=== PATIENT | female | born 1980 | race Two or more races ===

== ENCOUNTER 2022-11-18 17:57 | Inpatient (IN) | payer BC ==
[~2022-11-18] VITALS: Ht 154.9 cm; Wt 91.0 kg
[2022-11-18] MEDS ORDERED: SODIUM CHLORIDE 0.9% 1,000 ML IV ONE (19:15)
[2022-11-18] MEDS ORDERED: ONDANSETRON HCL 4 MG/2 ML VIAL IV ONE (19:15)
[2022-11-18 19:24] LABS: Hematocrit 52.1 % (36.0-46.0); Hemoglobin 17.5 g/dL (12.2-16.2); Mean Corpuscular Hgb Conc. 33.6 g/dL (32.0-36.0)
[2022-11-18 19:26] LABS: Mean Corpuscular Hemoglobin 28.8 pg (28.0-32.0); Mean Corpuscular Volume 85.8 fL (80.0-100.0); Red Blood Cells 6.07 10^6/uL (4.0-5.20); Red Cell Distribution Width 14.4 % (11.8-14.3); White Blood Cell 25.8 10^3/uL (4.4-10.8)
[2022-11-18 19:30] LABS: Basophils % (manual) 0 (0.0-2.0); Blast Cells 0; Eosinophils % (manual) 0 (0-7); Metamyelocytes % 0; Myelocytes % 0; Promyelocytes % 0; Reactive Lymphocytes 0
[2022-11-18 20:01] LABS: Anisocytosis Slight; Band Neutrophils % (manual) 4; Lymphocytes % (manual) 13 (10.0-50.0); Monocytes % (manual) 11 (0-12); Platelet Estimate Adequate
[2022-11-18 20:02] LABS: Albumin 4.5 g/dL (3.4-5.0); Anion Gap 13 (5-15); Blood Urea Nitrogen 22 mg/dL (7-18); Calcium 12.7 mg/dL (8.5-10.1); Carbon Dioxide 22 mmol/L (21-32); Chloride 102 mmol/L (98-107); Glucose 187 mg/dL (74-106); Lipase 977 U/L (73-393); Potassium 3.5 mmol/L (3.5-5.1); Sodium 137 mmol/L (136-145)
[2022-11-18 20:05] LABS: Alanine Aminotransferase 182 U/L (13-56); Alkaline Phosphatase 99 U/L (45-117); Aspartate Aminotransferase 125 U/L (15-37); BUN/Creatinine Ratio 12.4 (10.0-20.0); Bilirubin, Total 1.2 mg/dL (0.2-1.0); GFR African American 40 mL/min; GFR Non-African American 33 mL/min; Total Protein 8.8 g/dL (6.4-8.2)
[2022-11-18] MEDS ORDERED: PIPERACILLIN-TAZOB 3.375GM 100 ML IV ONE (21:45)
[2022-11-19] MEDS ORDERED: NITROGLYCERIN 0.4 MG SL TAB SL PRN (00:45)
[2022-11-19] MEDS ORDERED: ONDANSETRON HCL 4 MG/2 ML VIAL IV PRN (00:45)
[2022-11-19] MEDS ORDERED: HYDROcodone-ACET 5/325MG TAB PO PRN (00:45)
[2022-11-19] MEDS ORDERED: MORPHINE SULFATE INJ 2 MG/ml SYRG IV PRN ×2 (00:45)
[2022-11-19] MEDS ORDERED: SODIUM CHLORIDE 0.9% 1,000 ML IV SCH (00:45)
[2022-11-19] MEDS ORDERED: IBUPROFEN 600 MG TAB PO PRN (00:45)
[2022-11-19] MEDS ORDERED: DOCUSATE SOD 100 MG CAP PO PRN (00:45)
[2022-11-19 06:09] LABS: Basophils # (auto) 0 10 ^3/uL (0-0.2); Basophils % (auto) 0.2 % (0.0-2.0); Eosinophils # (auto) 0 10 ^3/uL (0-0.8); Eosinophils % (auto) 0.3 % (0.0-7.0); Hematocrit 45.4 % (36.0-46.0); Hemoglobin 15.5 g/dL (12.2-16.2); Lymphocytes # (auto) 2.6 10 ^3/uL (0.4-5.4); Lymphocytes % (auto) 21.8 % (10.0-50.0); Mean Corpuscular Hemoglobin 28.8 pg (28.0-32.0); Mean Corpuscular Volume 84.7 fL (80.0-100.0); Monocytes # (auto) 0.7 10 ^3/uL (0-1.3); Monocytes % (auto) 6.1 % (0.0-12.0); Neutrophils # (auto) 8.6 10 ^3/uL (1.6-8.6); Neutrophils % (auto) 71.6 % (37.0-80.0); Nucleated Red Blood Cells % 0.3 %; Red Blood Cells 5.36 10^6/uL (4.0-5.20); Red Cell Distribution Width 14.9 % (11.8-14.3)
[2022-11-19] MEDS: metroNIDAZOLE 500MG/100ML 100 ML IV SCH ×3 (06:12→23:30)
[2022-11-19 06:31] LABS: Albumin 3.9 g/dL (3.4-5.0); BUN/Creatinine Ratio 18.1 (10.0-20.0); Bilirubin, Total 0.9 mg/dL (0.2-1.0); Calcium 11.4 mg/dL (8.5-10.1)
[2022-11-19 07:53] VITALS: RESP 15; O2SAT 96
[2022-11-19] MEDS: cefTRIAXone 1GM/50ML D5W 50 ML IV SCH (09:15)
[2022-11-19 09:21] LABS: COVID19 ANTIGEN SOFIA FIA NEGATIVE (NEGATIVE); Rapid Influenza A Negative (Negative); Rapid Influenza B Negative (Negative)
[2022-11-19] MEDS ORDERED: POTASSIUM CHL 20 Meq TABLET PO ONE (11:45)
[2022-11-19] MEDS: SODIUM CHLORIDE 0.9% 1,000 ML IV SCH ×2 (12:10→21:46)
[2022-11-19 16:29] VITALS: BP 134/83; PULSE 61; RESP 16; TEMP 98.3; O2SAT 99
[2022-11-19 20:00] VITALS: BP 130/91; PULSE 75; RESP 20; TEMP 98.1
[2022-11-19 22:00] VITALS: BP 130/91; PULSE 75; RESP 20; TEMP 98.1; O2SAT 97
[2022-11-20] MEDS: metroNIDAZOLE 500MG/100ML 100 ML IV SCH ×4 (01:53→21:34)
[2022-11-20] MEDS: SODIUM CHLORIDE 0.9% 1,000 ML IV SCH ×4 (01:53→19:45)
[2022-11-20 05:00] VITALS: BP 137/91; PULSE 71; RESP 18; TEMP 98; O2SAT 96
[2022-11-20 06:40] LABS: Basophils # (auto) 0 10 ^3/uL (0-0.2); Basophils % (auto) 0.3 % (0.0-2.0); Eosinophils # (auto) 0.4 10 ^3/uL (0-0.8); Eosinophils % (auto) 4.5 % (0.0-7.0); Hematocrit 40.8 % (36.0-46.0); Hemoglobin 13.7 g/dL (12.2-16.2); Lymphocytes # (auto) 3.2 10 ^3/uL (0.4-5.4); Lymphocytes % (auto) 34.3 % (10.0-50.0); Mean Corpuscular Hemoglobin 28.9 pg (28.0-32.0); Mean Corpuscular Hgb Conc. 33.7 g/dL (32.0-36.0); Mean Corpuscular Volume 85.8 fL (80.0-100.0); Monocytes # (auto) 0.8 10 ^3/uL (0-1.3); Monocytes % (auto) 8.6 % (0.0-12.0); Neutrophils # (auto) 4.9 10 ^3/uL (1.6-8.6); Neutrophils % (auto) 52.3 % (37.0-80.0); Nucleated Red Blood Cells % 0.1 %; Red Blood Cells 4.75 10^6/uL (4.0-5.20); Red Cell Distribution Width 14.7 % (11.8-14.3); White Blood Cell 9.4 10^3/uL (4.4-10.8)
[2022-11-20 06:55] LABS: Albumin 3.4 g/dL (3.4-5.0); Calcium 10.7 mg/dL (8.5-10.1); Potassium 3.1 mmol/L (3.5-5.1)
[2022-11-20 07:00] LABS: BUN/Creatinine Ratio 19.6 (10.0-20.0); Bilirubin, Total 0.7 mg/dL (0.2-1.0); Total Protein 6.7 g/dL (6.4-8.2)
[2022-11-20] MEDS ORDERED: POTASSIUM CHL 20 Meq TABLET PO ONE (07:30)
[2022-11-20 07:57] VITALS: RESP 20
[2022-11-20 09:00] VITALS: BP 119/84; PULSE 72; RESP 18; TEMP 98.2; O2SAT 98
[2022-11-20] MEDS: cefTRIAXone 1GM/50ML D5W 50 ML IV SCH (09:15)
[2022-11-20] MEDS: FAMOTIDINE (10MG/ML) 2ML VL IV SCH ×2 (09:15→21:35)
[2022-11-20] MEDS: POTASSIUM CHL 20 Meq TABLET PO SCH ×2 (09:16→21:35)
[2022-11-20 13:00] VITALS: BP 120/94; PULSE 68; RESP 18; TEMP 97.9; O2SAT 98
[2022-11-20 13:56] LABS: Hepatitis A Ab IgM Negative; Hepatitis B Core IgM Negative; Hepatitis B Surface Antigen Negative (Negative); Hepatitis C Antibody Negative (Negative)
[2022-11-20 17:00] VITALS: BP 151/91; PULSE 69; RESP 19; TEMP 97.9; O2SAT 92
[2022-11-20 22:00] VITALS: BP 128/79; PULSE 79; RESP 16; TEMP 98.2; O2SAT 99
[2022-11-21] MEDS: SODIUM CHLORIDE 0.9% 1,000 ML IV SCH ×2 (00:33→11:45)
[2022-11-21 05:00] VITALS: BP_SYST 138; BP_SYST 149; BP_DIAS 82; BP_DIAS 97; PULSE 75; PULSE 83; RESP 14; RESP 16; TEMP 98.2; TEMP 98.3; O2SAT 97; O2SAT 99
[2022-11-21] MEDS: metroNIDAZOLE 500MG/100ML 100 ML IV SCH (05:44)
[2022-11-21 06:30] LABS: Basophils # (auto) 0.1 10 ^3/uL (0-0.2); Basophils % (auto) 0.7 % (0.0-2.0); Eosinophils # (auto) 0.5 10 ^3/uL (0-0.8); Eosinophils % (auto) 5.2 % (0.0-7.0); Hemoglobin 13.8 g/dL (12.2-16.2); Lymphocytes # (auto) 3.8 10 ^3/uL (0.4-5.4); Lymphocytes % (auto) 41.4 % (10.0-50.0); Mean Corpuscular Hemoglobin 29.1 pg (28.0-32.0); Mean Corpuscular Hgb Conc. 33.7 g/dL (32.0-36.0); Mean Corpuscular Volume 86.4 fL (80.0-100.0); Monocytes # (auto) 0.7 10 ^3/uL (0-1.3); Monocytes % (auto) 8.3 % (0.0-12.0); Neutrophils % (auto) 44.4 % (37.0-80.0); Nucleated Red Blood Cells % 0.1 %; Red Blood Cells 4.74 10^6/uL (4.0-5.20); Red Cell Distribution Width 14.6 % (11.8-14.3); White Blood Cell 9.1 10^3/uL (4.4-10.8)
[2022-11-21 09:00] VITALS: BP 130/100; PULSE 78; RESP 20; TEMP 97.5; O2SAT 97
[2022-11-21 09:03] LABS: Potassium 3.8 mmol/L (3.5-5.1)
[2022-11-21 09:19] LABS: Albumin 3.4 g/dL (3.4-5.0); BUN/Creatinine Ratio 12.8 (10.0-20.0); Bilirubin, Total 0.5 mg/dL (0.2-1.0); Calcium 10.1 mg/dL (8.7-10.4); Total Protein 6.3 g/dL (6.4-8.2)
[2022-11-21] MEDS: FAMOTIDINE (10MG/ML) 2ML VL IV SCH (10:00)
[2022-11-21] MEDS: cefTRIAXone 1GM/50ML D5W 50 ML IV SCH (10:49)
[2022-11-21] MEDS: POTASSIUM CHL 20 Meq TABLET PO SCH (10:49)
[2022-11-21] MEDS ORDERED: PANT40TA2 PO (11:20)
[2022-11-21 14:56] VITALS: BP 140/96; PULSE 73; RESP 19; TEMP 97.8; O2SAT 97
[2022-11-24 02:06] LABS: Vitamin D, 25-Hydroxy 24.4 ng/mL (30.0-100.0)
== END 2022-11-21 16:10 | disposition home or self-care (01) | DRG 438 ==
LOC: ER 17:57 → OVERFLOW 11-19 00:41 → WEST WING 11-19 15:52
PROVIDERS: ADMIT Internal Medicine; ATTEND Internal Medicine
DX: K85.90 Acute pancreatitis without necrosis or infection, unspecified (principal); N17.0 Acute kidney failure with tubular necrosis; E87.6 Hypokalemia; E80.6 Other disorders of bilirubin metabolism; E66.01 Morbid (severe) obesity due to excess calories; I10 Essential (primary) hypertension; Z20.822 Contact with and (suspected) exposure to COVID-19; J45.909 Unspecified asthma, uncomplicated; D72.829 Elevated white blood cell count, unspecified; E83.52 Hypercalcemia; N63.20 Unspecified lump in the left breast, unspecified quadrant; R73.9 Hyperglycemia, unspecified; Z68.36 Body mass index [BMI] 36.0-36.9, adult; Z90.49 Acquired absence of other specified parts of digestive tract
CPT/HCPCS: 36415; 74176; 80053; 80074; 82306; 82607; 83036; 83605; 83690; 84443; 84702; 85007; 85025; 85027; 87040; 87426; 87804; 96361; 96365; 96375; G0378; J0696; J2405; J2543; J3490

== ENCOUNTER 2022-12-14 18:25 | Emergency (ER) | payer BC ==
[~2022-12-14] VITALS: Ht 165.1 cm; Wt 155.0 kg
[~2022-12-14 18:25] MED LIST: PANT40TA2 PO
[2022-12-14] MEDS ORDERED: ACETAMINOPHEN 500 MG TAB PO ONE (19:00)
[2022-12-14 19:29] LABS: Urine Bacteria NONE SEEN /hpf (None Seen); Urine Blood Negative /uL (Negative); Urine Clarity Clear (Clear); Urine Color Yellow (Yellow); Urine Protein, UAD 1+ (Negative); Urine Specific Gravity 1.017 (1.001-1.035); Urine Urobilinogen Normal (Negative); Urine WBC 19 /hpf (0 - 5); Urine pH 7.5 (5.0-8.0)
[2022-12-14 19:30] VITALS: PULSE 17; RESP 12; O2SAT 97
[2022-12-14 20:00] VITALS: TEMP 99.7
[2022-12-14 21:08] LABS: Rapid Strep A Screen-Throat Positive
[2022-12-14 21:08] LABS: COVID19 ANTIGEN SOFIA FIA NEGATIVE (NEGATIVE)
[2022-12-14 21:09] LABS: Rapid Influenza A Negative (Negative); Rapid Influenza B Negative (Negative)
[2022-12-14] MEDS ORDERED: PENICILLIN G PROC & BENZAT 1200000 UNITS/2 ML SYRG IM ONE (21:45)
[2022-12-14] MEDS ORDERED: NITROFURANTOIN 100 mg CAP PO ONE (21:45)
[2022-12-14] MEDS ORDERED: DexAMETHasone SOD PHOS 10MG/1ML VIAL INJ IM ONE (22:00)
[2022-12-14] MEDS ORDERED: HYDROmorphone HCL 2 MG/ML VL/or syr IM ONE (22:00)
[2022-12-14] MEDS ORDERED: IBUP-1455 PO (22:11)
[2022-12-14] MEDS ORDERED: ACET500T58 PO (22:11)
[2022-12-14] MEDS ORDERED: NITR-87 PO (22:11)
[2022-12-14 23:04] VITALS: BP 130/84; PULSE 96; RESP 16; O2SAT 97
== END 2022-12-14 23:10 | disposition home or self-care (01) ==
LOC: ER 18:25
DX: J02.0 Streptococcal pharyngitis (principal); N39.0 Urinary tract infection, site not specified; J45.909 Unspecified asthma, uncomplicated; Z20.822 Contact with and (suspected) exposure to COVID-19
CPT/HCPCS: 36415; 81001; 81025; 87426; 87804; 87880; 96372; 99284; J0558; J1100; J1170

== ENCOUNTER 2023-02-22 02:28 | Emergency (ER) | payer BC ==
[~2023-02-22] VITALS: Ht 154.9 cm; Wt 90.1 kg
[~2023-02-22 02:28] MED LIST changes: +ACET500T58 PO; +IBUP-1455 PO; +NITR-87 PO
[2023-02-22] MEDS ORDERED: HYDROmorphone HCL 2 MG/ML VL/or syr IV ONE ×2 (03:15→04:00)
[2023-02-22] MEDS ORDERED: ONDANSETRON HCL 4 MG/2 ML VIAL IV ONE ×2 (03:15→04:00)
[2023-02-22 03:35] VITALS: PULSE 72; RESP 18; O2SAT 98
[2023-02-22 03:35] LABS: Basophils # (auto) 0.1 10 ^3/uL (0-0.2); Eosinophils # (auto) 0.2 10 ^3/uL (0-0.8); Eosinophils % (auto) 1.6 % (0.0-7.0); Hematocrit 47.3 % (36.0-46.0); Hemoglobin 15.8 g/dL (12.2-16.2); Lymphocytes % (auto) 36.3 % (10.0-50.0); Mean Corpuscular Hemoglobin 29.2 pg (28.0-32.0); Mean Corpuscular Hgb Conc. 33.3 g/dL (32.0-36.0); Mean Corpuscular Volume 87.8 fL (80.0-100.0); Monocytes # (auto) 0.6 10 ^3/uL (0-1.3); Monocytes % (auto) 5.9 % (0.0-12.0); Neutrophils % (auto) 55.2 % (37.0-80.0); Red Blood Cells 5.39 10^6/uL (4.0-5.20); Red Cell Distribution Width 14.9 % (11.8-14.3); White Blood Cell 10.9 10^3/uL (4.4-10.8)
[2023-02-22] MEDS ORDERED: SODIUM CHLORIDE 0.9% 1,000 ML IVB ONE (04:00)
[2023-02-22 04:18] LABS: Alanine Aminotransferase 42 U/L (7-40); Albumin 4.3 g/dL (3.2-4.8); Alkaline Phosphatase 125 U/L (46-116); Anion Gap 6 (5-15); Aspartate Aminotransferase 20 U/L (13-40); BUN/Creatinine Ratio 13.1 (10.0-20.0); Blood Urea Nitrogen 13 mg/dL (9-23); Carbon Dioxide 26 mmol/L (20-30); Chloride 107 mmol/L (98-107); Glucose 124 mg/dL (74-106); Lipase 52 U/L (12-53); Magnesium 1.8 mg/dL (1.6-2.6); Potassium 3.8 mmol/L (3.5-5.1); Sodium 139 mmol/L (136-145)
[2023-02-22 04:19] LABS: Bilirubin, Total 0.3 mg/dL (0.2-1.0); Total Protein 7.5 g/dL (5.7-8.2)
[2023-02-22 05:02] LABS: INR 0.98 (0.9-1.15); Partial Thromboplastin Time 27.6 SEC (24.5-34.5); Prothrombin Time 10.3 sec (9.3-11.8)
[2023-02-22 05:04] LABS: Urine Bacteria NONE SEEN /hpf (None Seen); Urine Blood Negative /uL (Negative); Urine Clarity Clear (Clear); Urine Color Colorless (Yellow); Urine Protein, UAD 1+ (Negative); Urine Specific Gravity 1.013 (1.001-1.035); Urine Urobilinogen Normal (Negative); Urine WBC 23 /hpf (0 - 5); Urine pH 6.5 (5.0-8.0)
[2023-02-22 07:20] VITALS: PULSE 71; RESP 16; O2SAT 99
[2023-02-22 08:26] VITALS: BP 114/73; PULSE 71; RESP 16; O2SAT 97
== END 2023-02-22 08:34 | disposition home or self-care (01) ==
LOC: ER 02:28
DX: K76.9 Liver disease, unspecified (principal); R10.84 Generalized abdominal pain; I10 Essential (primary) hypertension; J45.909 Unspecified asthma, uncomplicated; Z98.890 Other specified postprocedural states; Z79.899 Other long term (current) drug therapy
CPT/HCPCS: 36415; 74177; 80053; 81001; 83605; 83690; 83735; 84484; 85025; 85610; 85730; 93005; 96361; 96374; 96375; 99285; J1170; J2405; J7030; Q9967

== ENCOUNTER 2023-04-28 01:34 | Emergency (ER) | payer BC ==
[~2023-04-28] VITALS: Ht 154.9 cm; Wt 91.5 kg
[2023-04-28 01:42] VITALS: BP 131/100; PULSE 89; RESP 16; TEMP 98; O2SAT 98
[2023-04-28] MEDS ORDERED: DexAMETHasone SOD PHOS 10MG/1ML VIAL INJ IM ONE (04:45)
[2023-04-28] MEDS ORDERED: KETOROLAC TROMETH 60MG/2ML VIAL IM ONE (04:45)
[2023-04-28] MEDS ORDERED: HYDROcodone-ACET 5/325MG TAB PO ONE (04:45)
[2023-04-28] MEDS ORDERED: IBUP1TAB5 PO (05:04)
== END 2023-04-28 05:46 | disposition home or self-care (01) ==
LOC: ER 01:34
DX: M72.2 Plantar fascial fibromatosis (principal); M79.672 Pain in left foot; I10 Essential (primary) hypertension; J45.909 Unspecified asthma, uncomplicated; Z98.890 Other specified postprocedural states; Z79.899 Other long term (current) drug therapy
CPT/HCPCS: 36415; 73630; 84550; 96372; 99284; J1100; J1885

== ENCOUNTER → 2024-05-22 | Outpatient (CLI) | payer BC ==
[~2024-05-22] MED LIST changes: +IBUP1TAB5 PO
== END | disposition home or self-care (01) ==
LOC: LAB 10:14
PROVIDERS: ATTEND Internal Medicine
DX: N63.20 Unspecified lump in the left breast, unspecified quadrant (principal)